=== PATIENT | male | born 1995 | race Caucasian/White ===

== ENCOUNTER 2016-10-05 14:55 | Emergency (ER) | payer MEDICAID ==
[2016-10-05 18:24] VITALS: BP 119/64
--- NOTE | 2016-10-05 18:45 | UC ---
Ashley Metzger Janilya, scribed for Tejal Duffy DO on 10/05/16 at 1652 . Respiratory Complaint HPI - HPI Summary HPI Summary: A 21 y/o male came in to [facility] presenting w/ a gradual onset of constant upper respiratory Sx for about a week that has improved slightly over the past couple of days. However, starting today, he also reports left eye redness and eye discharge. He states shower helped to clear up his eyes. Severity of eye discomfort at this time rated 1/10. No fb sensation. Pt reports tmax of 98.8 F , HUBBARD, mild sore throat, cough, nasal congestion, built up pressure in ears, fatigue for 6-7 days. Pt denies SOB, CP, nausea, vomiting, diarrhea, muscle aches, rashes, opthalmaplegia, swelling of eye, foreign body sensation. Pt normally uses contacts; however, the last time they were used was a couple days ago. - History of Current Complaint Chief Complaint: UCRespiratory Stated Complaint: EYE IRRITATION,FLU SYMPTOMS Time Seen by Provider: 10/05/16 16:31 Hx Obtained From: Patient Onset/Duration: Gradual Onset, Lasting Days, Still Present Timing: Constant Severity Initially: Moderate Severity Currently: Moderate Pain Intensity: 3 Pain Scale Used: 0-10 Numeric Character: Cough: Nonproductive Aggravating Factors: Nothing Alleviating Factors: Nothing Associated Signs And Symptoms: Positive: Fever, URI, Nasal Congestion. Negative : Dyspnea, Chills, Wheezing, Dizziness, Edema, Hoarseness, Sinus Discomfort - Allergies/Home Medications Allergies/Adverse Reactions: Allergies Allergy/AdvReac Type Severity Reaction Status Date / Time No Known Allergies Allergy Verified 11/22/15 13:52 PMH/Surg Hx/FS Hx/Imm Hx Previously Healthy: Yes Endocrine History Of: Denies: Diabetes, Thyroid Disease Cardiovascular History Of: Denies: Cardiac Disorders, Hypertension Respiratory History Of: Denies: COPD, Asthma GI/ History Of: Denies: Ulcer Psychological History Of: Reports: Anxiety - Surgical History Surgical History: None - Family History Known Family History: Positive: Hypertension, Diabetes - Social History Occupation: Employed Full-time Alcohol Use: Rare Substance Use Type: None Smoking Status (MU): Never Smoked Tobacco Review of Systems Constitutional: Fever Skin: Negative Eyes: Drainage, Eye Redness ENT: Sore Throat, Other - pressure in ears, nasal congestion Respiratory: Cough Cardiovascular: Negative Gastrointestinal: Negative Genitourinary: Negative Motor: Negative Neurovascular: Negative Musculoskeletal: Negative Neurological: Headache Psychological: Negative All Other Systems Reviewed And Are Negative: Yes Physical Exam Triage Information Reviewed: Yes Appearance: Well-Appearing, No Pain Distress, Well-Nourished Vital Signs: Initial Vital Signs Temp 98.8 F 10/05/16 15:34 Pulse 87 10/05/16 15:34 Resp 18 10/05/16 15:34 BP 124/67 10/05/16 15:34 Pulse Ox 100 10/05/16 15:34 Vital Signs Reviewed: Yes Eyes: Positive: Conjunctiva Inflamed, Discharge - minimal purulent discharge in left eye ENT: Positive: Hearing grossly normal, Pharyngeal erythema, TMs normal. Negative: Nasal congestion, Nasal drainage, Tonsillar swelling, Tonsillar exudate, Trismus, Muffled/hoarse voice Neck: Positive: Supple, Nontender, No Lymphadenopathy Respiratory: Positive: Lungs clear, Normal breath sounds, No respiratory distress, No accessory muscle use Cardiovascular: Positive: RRR, No Murmur Musculoskeletal Exam: Normal Neurological: Positive: Alert, Muscle Tone Normal Psychological Exam: Normal Psychological: Positive: Age Appropriate Behavior Skin Exam: Normal - warm, dry, normal color UC Diagnostic Evaluation - Laboratory O2 Sat by Pulse Oximetry: 100 Respiratory Course/Dx - Differential Dx/Diagnosis Differential Diagnosis/HQI/PQRI: Foreign Body, Bronchitis, Lower Resp Infection , Sinusitis, Tuberculosis - conjunctivits Provider Diagnoses: conjunctivitis, uri Discharge - Discharge Plan Condition: Stable Disposition: HOME Prescriptions: Tobramycin/Dexameth OPTH.SUSP* [Tobradex 0.3-0.1%*] 1 drop RIGHT EYE Q4H #1 btl Patient Education Materials: Upper Respiratory Infection (ED), Conjunctivitis ( ED) Referrals: Chuy Campbell MD [Primary Care Provider] - (Follow up in 3-5 days if not improving. Follow up sooner if symptoms worsen or new ones develop.) The documentation as recorded by the Ashley tang Janilya accurately reflects the service I personally performed and the decisions made by , Tejal Duffy DO.
== END 2016-10-05 18:15 | disposition home or self-care (01) ==
LOC: UCEAST 14:55
DX: H10.32 Unspecified acute conjunctivitis, left eye (principal); J06.9 Acute upper respiratory infection, unspecified; F41.9 Anxiety disorder, unspecified
CPT/HCPCS: 99212; G0463

== ENCOUNTER 2016-11-12 14:50 | Emergency (ER) | payer MEDICAID, OTHER ==
[2016-11-12 14:54] VITALS: BP 117/64
--- NOTE | 2016-11-12 15:27 | UC ---
Psychiatric Complaint HPI - HPI Summary HPI Summary: Patient presents with a past medical history of anxiety. He is/was a patient of Dr. Saab of [facility] who RC lexapro for him/ He states he missed an appointment and went to fill his RX and he had no refills, and when he callled Dr. Saab he had been discharged from his practice. So he has been out of his medications for 4 days now. He fells shaky, and believes he is in withdrawal. Denies any suicidal of homicidal ideation. - History Of Current Complaint Chief Complaint: UCMedRefill Stated Complaint: MED REFILL Time Seen by Provider: 11/12/16 14:57 - Allergies/Home Medications Allergies/Adverse Reactions: Allergies Allergy/AdvReac Type Severity Reaction Status Date / Time No Known Allergies Allergy Verified 11/22/15 13:52 PMH/Surg Hx/FS Hx/Imm Hx Previously Healthy: Yes Psychological History: Anxiety - Surgical History Surgical History: None - Family History Known Family History: Positive: Hypertension, Diabetes Family History: NON CONTRIBUTORY - Social History Alcohol Use: Rare Substance Use Type: None Smoking Status (MU): Never Smoked Tobacco Review of Systems Psychological: Anxious All Other Systems Reviewed And Are Negative: Yes Physical Exam Triage Information Reviewed: Yes Appearance: Well-Appearing Vital Signs: Initial Vital Signs Temp 98.4 F 11/12/16 14:53 Pulse 68 11/12/16 14:53 Resp 16 11/12/16 14:53 BP 117/64 11/12/16 14:53 Vital Signs Reviewed: Yes Eye Exam: Normal ENT Exam: Normal Neck exam: Normal Respiratory Exam: Normal Cardiovascular Exam: Normal Abdominal Exam: Normal Musculoskeletal Exam: Normal Neurological Exam: Normal Psychological Exam: Normal Skin Exam: Normal Psych Complaint Course/Dx - Course Course Of Treatment: Patient presents with complaints of running out of his anxiety medication and stated he had been discharged from Dr. Saab's practice , the office was contacted and he may call for an appointment in the morning,and /or they have walk-in hours tomorrow 9-2;30. I did not have the medication to give here, so the patient was advised to follow up with Dr. Saab. At the time of discharge the patient was stable, did not appear anxious, and had support (mother) with him. He was in agreement with the discharge plan and will follow up first thing in the morning. - Differential Dx/Diagnosis Differential Diagnosis/HQI/PQRI: Anxiety Provider Diagnoses: anxiety Discharge - Discharge Plan Condition: Stable Disposition: HOME Patient Education Materials: Generalized Anxiety Disorder (ED) Referrals: Chuy Campbell MD [Primary Care Provider] -
== END 2016-11-12 15:15 | disposition home or self-care (01) ==
LOC: UCEAST 14:50
DX: F41.9 Anxiety disorder, unspecified (principal)
CPT/HCPCS: 99211; G0463

== ENCOUNTER 2019-02-09 16:45 | Emergency (ER) | payer SELFPAY ==
[2019-02-09 16:54] VITALS: BP 136/78
[2019-02-09] MEDS ORDERED: Albuterol 2.5 MG/3 ML NEB.SOL* (0.083%) INH ONE (17:17)
--- NOTE | 2019-02-09 17:29 | UC ---
Shortness of Breath HPI - HPI Summary HPI Summary: 23 year old male with no PMH presents with "lump in throat" which he thinks began after smoking weed with friends ~ 1 weeks ago. no others with symptoms. intermittently will have difficulty taking deep breath, no other smoking. no wheezing, coughing. able to swallow without difficulty, no problems chewing. - History of Current Complaint Chief Complaint: UCGeneralIllness Stated Complaint: SOB Time Seen by Provider: 02/09/19 17:01 Hx Obtained From: Patient Onset/Duration: Sudden Onset, Lasting Weeks Current Severity: None Dyspnea At: Rest Associated Signs & Symptoms: Negative: Cough (Nonproductive), Wheezing, Chest Pain w/Cough, Chest Pain Unrelated to Cough, Fever, Chills, Nasal Congestion - Allergy/Home Medications Allergies/Adverse Reactions: Allergies Allergy/AdvReac Type Severity Reaction Status Date / Time No Known Allergies Allergy Verified 02/09/19 16:51 Home Medications: Home Medications NK [No Home Medications Reported] 02/09/19 [History Confirmed 02/09/19] PMH/Surg Hx/FS Hx/Imm Hx Previously Healthy: Yes - Surgical History Surgical History: None - Family History Known Family History: Positive: Hypertension, Diabetes, Non-Contributory Family History: NON CONTRIBUTORY - Social History Alcohol Use: Rare Substance Use Type: Marijuana Substance Use Comment - Amount & Last Used: occassionally Smoking Status (MU): Never Smoked Tobacco Review of Systems All Other Systems Reviewed And Are Negative: Yes Respiratory: Positive: Shortness Of Breath Is Patient Immunocompromised?: No Physical Exam Triage Information Reviewed: Yes Appearance: Well-Appearing, No Pain Distress, Well-Nourished Vital Signs: Initial Vital Signs Temp 98.9 F 02/09/19 16:51 Pulse 77 02/09/19 16:51 Resp 18 02/09/19 16:51 BP 136/78 02/09/19 16:51 Pulse Ox 100 02/09/19 16:51 Eye Exam: Normal Eyes: Positive: Conjunctiva Clear ENT: Positive: Pharynx normal, TMs normal, Uvula midline. Negative: Tonsillar swelling, Tonsillar exudate, Sinus tenderness Neck: Positive: Supple, Nontender, No Lymphadenopathy. Negative: Nuchal Rigidity, Enlarged Nodes @ Respiratory: Positive: Chest non-tender, Lungs clear, Normal breath sounds, No respiratory distress, No accessory muscle use. Negative: Respiratory distress, Decreased breath sounds, Crackles, Rhonchi, Stridor, Wheezing Cardiovascular: Positive: RRR, No Murmur. Negative: Pulses Normal Musculoskeletal Exam: Normal Neurological Exam: Normal Psychological Exam: Normal Skin Exam: Normal Shortness of Breath Dx - Course Course Of Treatment: CXR- Deployment Technician: Diane Steele S, ([id number]) Pet Adoption Counselor: BRIA, (NUANCE) Report Date: 02/09/2019 17:16:00 Report Status: Final Start of Report Content Patient Name: VANDANA REYES Medical Record#: [id number] Ordering Physician: Desirae MALDONADO Acct.#: [id number] : Age: 23 Sex: M Location: URG[facility] Exam Date: 02/09/191715 ADM Status: REG ER Order Information: CHEST PA LAT 2 VWS Accession Number: [id number] CPT: 94974 Indication: Lung discomfort. 2 views of the chest demonstrates no mediastinal shift. Heart is of normal size and configuration. Lung salazar are clear. When compared to previous exam of November 22, 2015 no significant change is noted. IMPRESSION: No active cardiopulmonary disease is noted. < Electronically signed by Diane Steele MD in OV> 02/09/191741 Dictated By: Diane Steele MD Dictated Date/Time: 02/09/191741 Transcribed Date/Time: 02/09/191741 Copy to: CC:Chuy Campbell MD; Kim Ambrose MD; Desirae MALDONADO Imaging - [facility] Imaging [facility] Urgent [facility] [address] [facility] [address] [place] [address] [place] [address] [place] [address] ph ([phone]) ph ([phone]) ph ([phone]) ===== End of Report Content Minimal improvement with nebulizer. Possible reactive airway disease, however further work up needed. - Follow up with primary physician for further evaluation and treatment and studies - Albuterol inhaler as needed for shortness of breath - GO to ER with increased shortness of breath, lightheadedness, decreased swallowing, fever - Differential Dx/Diagnosis Differential Diagnosis/HQI/PQRI: Asthma, Bronchitis, CHF Provider Diagnosis: Sensation of lump in throat Discharge ED - Sign-Out/Discharge Documenting (check all that apply): Patient Departure All imaging exams completed and their final reports reviewed: Yes - Discharge Plan Condition: Good Disposition: HOME Patient Education Materials: Shortness of Breath (ED) Referrals: Chuy Campbell MD [Primary Care Provider] - (Follow up this week ) Additional Instructions: - Follow up with primary physician for further evaluation and treatment and studies - Albuterol inhaler as needed for shortness of breath - GO to ER with increased shortness of breath, lightheadedness, decreased swallowing, fever Chest X-ray : Deployment Technician: Diane Steele S ([id number]) Pet Adoption Counselor: BRIA (BRIA) Report Date: 02/09/2019 17:16:00 Report Status: Final Start of Report Content Patient Name: VANDANA REYES Medical Record#: [id number] Ordering Physician: Desirae MALDONADO Acct.#: [id number] : Age: 23 Sex: M Location: [facility] Exam Date: 02/09/191715 ADM Status: REG ER Order Information: CHEST PA LAT 2 VWS Accession Number: [id number] CPT: 72066 Indication: Lung discomfort. 2 views of the chest demonstrates no mediastinal shift. Heart is of normal size and configuration. Lung salazar are clear. When compared to previous exam of November 22, 2015 no significant change is noted. IMPRESSION: No active cardiopulmonary disease is noted. < Electronically signed by Diane Steele MD in OV> 02/09/191741 Dictated By: Diane Steele MD Dictated Date/Time: 02/09/191741 Transcribed Date/Time: 02/09/191741 Copy to: CC:Chuy Campbell MD; Kim Ambrose MD; Desirae MALDONADO Imaging - [facility] Imaging [facility] Urgent [facility] [address] [address] ph ([phone]) ph ([phone]) ph ([phone]) ===== End of Report Content - Billing Disposition and Condition Condition: GOOD Disposition: Home
[2019-02-09] MEDS ORDERED: Albuterol HFA INHALER* 8 gm MDI INH ONE (17:53)
== END 2019-02-09 18:14 | disposition home or self-care (01) ==
LOC: UCEAST 16:45
DX: F45.8 Other somatoform disorders (principal)
CPT/HCPCS: 71046; 99212; A9270-GY; G0463

== ENCOUNTER 2019-03-30 17:35 | Emergency (ER) | payer SELFPAY ==
[2019-03-30 18:04] VITALS: BP 131/84
--- NOTE | 2019-03-30 18:59 | UC ---
Hand/Wrist HPI - HPI Summary HPI Summary: The patient is a 23-year-old male that has had no 1-2 week history of bilateral hand coldness. He has also had right leg paresthesias and right foot feeling cold. He denies any back pain. He denies any injury. He denies any family history of any rheumatological problems or connective tissue diseases or autoimmune problems. He denies any fever or chills. He denies any nausea vomiting or diarrhea. - History Of Current Complaint Chief Complaint: UCLowerExtremity Stated Complaint: TINGLING, COLDNESS IN RT LEG. Time Seen by Provider: 03/30/19 18:28 Hx Obtained From: Patient Onset/Duration: Gradual Onset, Lasting Weeks Severity Initially: Mild Severity Currently: Mild Pain Intensity: 2 Pain Scale Used: 0-10 Numeric Character Of Pain: Burning Aggravating Factor(s): Other - cold Alleviating Factor(s): Nothing Associated Signs And Symptoms: Negative: Swelling, Redness Related History: Dominant Hand Right - Allergies/Home Medications Allergies/Adverse Reactions: Allergies Allergy/AdvReac Type Severity Reaction Status Date / Time No Known Allergies Allergy Verified 03/30/19 18:04 Home Medications: Home Medications LORazepam [Lorazepam] 1 tab PO DAILY PRN 03/30/19 [History Confirmed 03/30/19] PMH/Surg Hx/FS Hx/Imm Hx Previously Healthy: Yes - Surgical History Surgical History: None - Family History Known Family History: Positive: Hypertension, Diabetes, Non-Contributory Family History: NON CONTRIBUTORY - Social History Alcohol Use: Rare Substance Use Type: Marijuana Substance Use Comment - Amount & Last Used: occassionally Smoking Status (MU): Never Smoked Tobacco Review of Systems All Other Systems Reviewed And Are Negative: Yes Constitutional: Positive: Negative Skin: Positive: Negative Eyes: Positive: Negative ENT: Positive: Negative Respiratory: Positive: Negative Cardiovascular: Positive: Negative Gastrointestinal: Positive: Negative Genitourinary: Positive: Negative Motor: Positive: Negative Neurovascular: Positive: Negative Musculoskeletal: Positive: Negative Neurological: Positive: Paresthesia Psychological: Positive: Negative Physical Exam Triage Information Reviewed: Yes Appearance: Well-Appearing, No Pain Distress, Well-Nourished Vital Signs: Initial Vital Signs Temp 99.1 F 03/30/19 18:01 Pulse 80 03/30/19 18:01 Resp 18 03/30/19 18:01 BP 131/84 03/30/19 18:01 Pulse Ox 100 03/30/19 18:01 Vital Signs Reviewed: Yes Eyes: Positive: Conjunctiva Clear ENT: Positive: Hearing grossly normal, Uvula midline. Negative: Nasal congestion, Nasal drainage, Tonsillar swelling, Tonsillar exudate, Muffled voice , Hoarse voice Neck: Positive: Supple, Nontender, No Lymphadenopathy Respiratory: Positive: Lungs clear, Normal breath sounds, No respiratory distress, No accessory muscle use Cardiovascular: Positive: RRR, No Murmur Musculoskeletal: Positive: ROM Intact, No Edema Neurological: Positive: Alert, Other: - non focal exam , cn 2-12 intact , strength 5/5, no pronater drift, DTRs brisk and equal Psychological Exam: Normal Skin Exam: Normal Skin: Positive: Other - both hands feel cold but good cap refill Hand/Wrist Course/Dx - Differential Dx/Diagnosis Provider Diagnosis: Raynaud disease, Paresthesia of right leg Discharge ED - Sign-Out/Discharge Documenting (check all that apply): Patient Departure All imaging exams completed and their final reports reviewed: No Studies - Discharge Plan Condition: Stable Disposition: HOME Patient Education Materials: Raynaud Disease (ED), Paresthesia (ED) Referrals: Elke Campbell MD [Primary Care Provider] - 7 Days Additional Instructions: blood work is pending your symptoms need further evaluation - Billing Disposition and Condition Condition: STABLE Disposition: Home
[2019-03-31 11:21] LABS: ABS Eosinophils 0.2 10^3/ul (0-0.6); ABS Lymphocytes 2.2 10^3/ul (1.0-4.8); ABS Monocytes 0.5 10^3/ul (0-0.8); ABS Neutrophils 5.3 10^3/ul (1.5-7.7); Eosinophil % 2.6 %; Hematocrit 45 % (42-52); Hemoglobin 15.4 g/dL (14.0-18.0); Mean Corpuscular HGB Conc 34 g/dL (31-36); Mean Corpuscular Hemoglobin 30 pg (27-31); Mean Corpuscular Volume 88 fL (80-94); Mean Platelet Volume 8.9 fL (7.4-10.4); Nucleated Red Blood Cells % 0.1; Platelet Count 269 10^3/uL (150-450); Red Blood Count 5.13 10^6 /uL (4.18-5.48); Red Cell Distribution Width 13 % (10-15); White Blood Count 8.3 10^3/uL (3.5-10.8)
[2019-03-31 11:45] LABS: TSH (Thyroid Stimulating Horm) 1.09 mcIU/mL (0.34-5.60)
[2019-03-31 12:38] LABS: Erythrocyte Sed Rate 0 mm/Hr (0-14)
[2019-03-31 12:48] LABS: Calcium 9.8 mg/dL (8.6-10.3); Potassium 3.6 mmol/L (3.5-5.0)
[2019-03-31 12:53] LABS: BUN/Creatinine Ratio 10.2 (8-20); EGFR African American 113.7 (>60)
--- NOTE | 2019-03-31 15:18 | UC ---
- Progress Note Progress Note: Patient lab work WNLs, nurse to call patient and have him follow up with PCP for further testing/ evaluation. -Desirae Gomez Course/Dx - Diagnoses Provider Diagnoses: Raynaud disease, Paresthesia of right leg Discharge ED - Sign-Out/Discharge Documenting (check all that apply): Patient Departure All imaging exams completed and their final reports reviewed: No Studies - Discharge Plan Condition: Stable Disposition: HOME Patient Education Materials: Raynaud Disease (ED), Paresthesia (ED) Referrals: Elke Campbell MD [Primary Care Provider] - 7 Days Additional Instructions: blood work is pending your symptoms need further evaluation - Billing Disposition and Condition Condition: STABLE Disposition: Home
== END 2019-03-30 19:31 | disposition home or self-care (01) ==
LOC: UCEAST 17:35
DX: R20.2 Paresthesia of skin (principal); I73.00 Raynaud's syndrome without gangrene
CPT/HCPCS: 36415; 80048; 84443; 85025; 85652; 86038; 86618; 99211; G0463